=== PATIENT | male | born 1970 | race American Indian/Alaskan Native ===

== ENCOUNTER 2020-12-14 03:50 | Emergency (ER) | payer SELFPAY ==
--- NOTE | 2020-12-14 04:26 | Emergency Department Report ---
ED CPR HPI - General Chief Complaint: Cardiac Arrest/CPR Stated Complaint: CARDIAC ARREST Time Seen by Provider: 12/14/20 04:18 Source: EMS Mode of arrival: Stretcher Limitations: No Limitations - History of Present Illness Initial Comments: Patient is a 50-year-old male who presents emergency room for cardiac arrest. Patient brought in by EMS. EMS states that the arrest was witnessed by the neighbor. Neighbor states that the patient called her because he was having difficulty breathing. Neighbor states that the patient then sat on the floor and went unresponsive. They were EMS states that when the neighbor called for EMS help. Upon arrival to the residence, EMS states that patient was asystole, no pulse and not breathing. Patient was intubated by EMS. MD Complaint: found unresponsive, stopped breathing -: minute(s) Place: home Bystander CPR Performed: No AED Applied by Bystander/Property Man: No Initial Findings in the Field: unresponsive, no respirations, no pulse ROSC in the Field: No Associated Injuries: No Associated Symptoms: shortness of breath ED Review of Systems ROS: Stated complaint: CARDIAC ARREST Other details as noted in HPI Comment: Unobtainable due to pts medical conditions ED Past Medical Hx - Past Medical History Previous Medical History?: No Additional medical history: Unable to obtain - Surgical History Past Surgical History?: No Additional Surgical History: Unable to obtain - Family History Family history: no significant - Social History Smoking Status: Unknown if ever smoked Substance Use Type: None ED Physical Exam - General Limitations: No Limitations General appearance: obtunded - Head Head exam: Present: atraumatic, normocephalic - Eye Eye exam: Present: other (Pupils fixed and dilated) - ENT ENT exam: Present: mucous membranes dry - Neck Neck exam: Present: normal inspection - Respiratory Respiratory exam: Present: rhonchi, other (ET tube placement verified with bilateral breath sounds.) - Cardiovascular Cardiovascular Exam: Present: other (No pulse noted) - GI/Abdominal GI/Abdominal exam: Present: soft - Rectal Rectal exam: Present: deferred - Extremities Exam Extremities exam: Present: normal inspection - Back Exam Back exam: Present: normal inspection - Neurological Exam Neurological exam: Present: altered - Skin Skin exam: Present: warm, dry, intact, normal color. Absent: rash ED Course - Reevaluation(s) Reevaluation #1: I discussed the case with EMS via the EMS phone prior to their arrival to the hospital.. Report received from EMS. I instructs EMS to bring the patient to the hospital and continue ACLS protocol. 12/14/20 03:35 Reevaluation #2: Patient arrived via EMS. Patient was transferred to our bed. CPR was continued. 12/14/20 03:53 Reevaluation #3: Patient has spontaneous return of circulation. Patient will have labs done. 12/14/20 04:00 Reevaluation #4: Patient went back into cardiac arrest. Patient PEA on the monitor. CPR started. 12/14/20 04:03 Resuscitation efforts were terminated due to no signs of life, no pulse, no cardiac motion on ultrasound.. Patient asystole on the monitor. See code note. Code ran in accordance with ACLS guidelines. 12/14/20 04:08 ED Medical Decision Making - Medical Decision Making Patient is a 50-year-old male who presents emergency room with a cardiac arrest. Patient's only complaint per EMS with shortness of breath. Patient report received from EMS prior to arrival. Patient report received also after arrival by EMS. Patient code ran in accordance with ACLS guidelines. Resuscitation efforts were terminated after no signs of life. See code note. Critical care time documented due to the multiple reassessments, prolonged time at the bedside, interpretation of EKG and cardiac rhythms. - Differential Diagnosis Cardiac arrest, shortness of breath, PE, PR Critical Care Time: Yes Critical care time in (mins) excluding proc time.: 35 Critical care attestation.: If time is entered above; I have spent that time in minutes in the direct care of this critically ill patient, excluding procedure time. Critical Care Time: 35 minutes ED Disposition Clinical Impression: Cardiac arrest Disposition: DC-20 Is pt being admited?: No Does the pt Need Aspirin: No Condition: Undetermined Time of Disposition: 05:31
[2020-12-14] MEDS ORDERED: AMIODARONE 150 MG/3 ML INJ IV ONE (14:23)
[2020-12-14] MEDS ORDERED: EPINEPHrine 1 MG/10 ML SYRINGE ONE (14:23)
== END 2020-12-14 05:00 ==
LOC: ED 03:50
DX: I46.9 Cardiac arrest, cause unspecified (principal)
CPT/HCPCS: 92950; 99291; J0171; J0282